=== PATIENT | male | born 1995 | race Caucasian/White ===

== ENCOUNTER 2023-12-13 11:40 | Outpatient (CLI) | payer BC, SELFPAY | END 2023-12-13 11:41 | disposition home or self-care (01) | PROVIDERS: PCP Family Medicine; Visit Provider Family Medicine | DX: F10.11 Alcohol abuse, in remission (principal); F32.9 Major depressive disorder, single episode, unspecified; F31.9 Bipolar disorder, unspecified; F41.1 Generalized anxiety disorder | CPT/HCPCS: 80048; 80076; 85025 ==